=== PATIENT | female | born 1995 | race Caucasian/White ===

== ENCOUNTER 2017-07-13 15:11 | Emergency (ER) | payer OTHER ==
[~2017-07-13] VITALS: Ht 162.6 cm; Wt 59.1 kg
[2017-07-13] MEDS ORDERED: FAMOTIDINE 20 MG TABLET ONE (15:52)
[2017-07-13] MEDS ORDERED: ONDANSETRON ODT 4 MG ONE (15:52)
[2017-07-13] MEDS ORDERED: MAALOX/HYOSCYAMINE/LIDOCAINE 45 ML BTL ONE (15:52)
[2017-07-13] MEDS ORDERED: MAALOX/HYOSCYAMINE/LIDOCAINE 45 ML BTL PO ONE (16:00)
[2017-07-13] MEDS ORDERED: FAMOTIDINE 20 MG TABLET PO ONE (16:00)
[2017-07-13] MEDS ORDERED: ONDANSETRON ODT 4 MG PO ONE (16:00)
[2017-07-13 16:24] LABS: HEMATOCRIT 41.3 % (34.6-47.8); HEMOGLOBIN 13.7 g/dL (11.7-16.4); WHITE BLOOD COUNT 9.9 x10^3/uL (3.4-10)
[2017-07-13 16:36] LABS: BLOOD UREA NITROGEN 11 mg/dL (7-18)
[2017-07-13 17:30] LABS: ASPARTATE AMINO TRANSFERASE 13 U/L (15-37)
[2017-07-13] MEDS ORDERED: OMNIPAQUE 350 MG/ML, 100ML BOTTLE ONE (17:48)
[2017-07-13 18:13] VITALS: BP 109/68
== END 2017-07-13 18:17 | disposition home or self-care (01) ==
LOC: ED 16:56
DX: R07.89 Other chest pain (principal)
CPT/HCPCS: 36415; 71020; 71275; 80048; 80076; 82040; 83690; 85025; 85379; 93005; 99285; Q0162; Q9967